=== PATIENT | female | born 1935 | race Caucasian/White ===

== ENCOUNTER 2022-06-12 11:29 | Emergency (ER) | payer MEDICARE, OTHER ==
[~2022-06-12] VITALS: Ht 162.6 cm; Wt 78.0 kg
[2022-06-12 11:56] VITALS: BP 151/103
[2022-06-12] MEDS ORDERED: proparacaine 0.5% ophthalmic drops 15ml EACHEYE ONE (14:00)
[2022-06-12] MEDS ORDERED: CIPR2.5D21 RIGHTEYE (14:20)
[2022-06-12] MEDS ORDERED: ciprofloxacin 0.3% 2.5ml ophthalmic solution RIGHTEYE ONE (14:30)
[2022-06-12] MEDS ORDERED: Cipro HC otic suspension 10ML bottle RIGHT EAR SCH (20:00)
== END 2022-06-12 14:50 | disposition home or self-care (01) ==
LOC: ER 11:30
DX: H10.31 Unspecified acute conjunctivitis, right eye (principal); Z79.899 Other long term (current) drug therapy
CPT/HCPCS: 99283